=== PATIENT | male | born 1950 | race Caucasian/White ===

== ENCOUNTER 2019-02-14 17:00 | Emergency (ER) | payer OTHER ==
[2019-02-14] MEDS ORDERED: TETANUS & DIPHTHERIA TOX,ADULT 0.5 ML VIAL ONE (19:24)
--- NOTE | 2019-02-14 20:21 | ER ---
Nurse's Notes [facility] Name: Saleem Rodriguez Age: 68 yrs Sex: Male : 1950 Arrival Date: 02/14/2019 Time: 17:04 Bed 27 Private MD: Tho Elizondo V Diagnosis: Left Thumb Skin Avulsion Presentation: 02/14 17:23 Presenting complaint: Patient states: I was carrying a table saw when i lost control of sg the saw and slipped and dropped it, slicing my left thumb. Transition of care: patient was not received from another setting of care. Onset of symptoms was February 14, 2019. Risk Assessment: Do you want to hurt yourself or someone else? Patient reports no desire to harm self or others. Initial Sepsis Screen: Does the patient meet any 2 criteria? No. Patient's initial sepsis screen is negative. Does the patient have a suspected source of infection? No. Patient's initial sepsis screen is negative. Care prior to arrival: None. 17:23 Method Of Arrival: Ambulatory sg 17:23 Acuity: YOUSIF 4 sg Historical: - Allergies: 17:06 No Known Allergies; sg - PMHx: 17:06 Diabetes - NIDDM; High Cholesterol; Hypertension; Prostate Cancer; sg - PSHx: 17:06 left kidney removed; sg - Immunization history:: Adult Immunizations. - Social history:: Smoking status: Patient/guardian denies using tobacco. - Ebola Screening: : Patient negative for fever greater than or equal to 101.5 degrees Fahrenheit, and additional compatible Ebola Virus Disease symptoms Patient denies exposure to infectious person Patient denies travel to an Ebola-affected area in the 21 days before illness onset No symptoms or risks identified at this time. Screenin:41 Abuse screen: Denies threats or abuse. Denies injuries from another. Nutritional iw screening: No deficits noted. Tuberculosis screening: No symptoms or risk factors identified. Fall Risk Fall in past 12 months (25 points). Assessment: 17:41 General: Appears in no apparent distress. comfortable, Behavior is calm, cooperative. iw Pain: Complains of pain in dorsal aspect of distal phalanx of left thumb and left thumbnail. Neuro: Level of Consciousness is awake, alert, obeys commands, Oriented to person, place, time, situation, Moves all extremities. Full function. Cardiovascular: Patient's skin is warm and dry. Respiratory: Respiratory effort is even, unlabored. Derm: Skin is intact, is healthy with good turgor. Musculoskeletal: Range of motion: intact in all extremities. 17:42 Injury Description: Avulsion sustained to dorsal aspect of distal phalanx of left thumb iw is partial. 19:37 Reassessment: Patient appears in no apparent distress at this time. No changes from dm5 previously documented assessment. Vital Signs: 17:24 BP 155 / 71; Pulse 87; Resp 18; Temp 97.6; Pulse Ox 100% on R/A; sg 20:23 BP 155 / 74; Pulse 72; Resp 20; Temp 99.2(O); Pulse Ox 96% ; lt1 ED Course: 17:04 Patient arrived in ED. mr 17:04 Tho Elizondo MD is Private Physician. mr 17:05 Arm band placed on. sg 17:24 Triage completed. sg 17:30 Bandage applied. Pressure dressing applied. cleaned with NS and Chlorhexidine solution, sg pt tolerated well. 17:35 Corazon Gambino, RN is Primary Nurse. iw 17:42 Patient has correct armband on for positive identification. iw 18:20 Brian Mejia PA is PHCP. jmm 18:20 Jesus Bowden MD is Attending Physician. m 19:37 No provider procedures requiring assistance completed. dm5 19:38 Della Jiang, ALEXANDRA is Primary Nurse. dm5 19:41 Hand Left 3 View XRAY In Process Unspecified. EDMS 20:20 Shine Flanagan MD is Referral Physician. jmm 21:39 Patient did not have IV access during this emergency room visit. dm5 Administered Medications: 18:24 CANCELLED (no flu): Tamiflu 30 mg PO once jmm 19:35 Drug: Tetanus-Diphtheria Toxoid Adult 0.5 ml {Chip Machine Operator: [facility]. Exp: dm5 08/13/2020. Lot #: [id number]. } Route: IM; Site: left deltoid; 19:50 Follow up: Response: No adverse reaction dm5 Outcome: 20:20 Discharge ordered by MD. jmm 20:20 Discharged to home ambulatory. dm5 20:20 Condition: good 20:20 Discharge instructions given to patient, Instructed on discharge instructions, follow up and referral plans. Demonstrated understanding of instructions, follow-up care, wound care. 20:28 Patient left the ED. dm5 Signatures: Dispatcher [employer] Della Toussaint, RN ALEXANDRA dm5 Mathieu Britt RN RN sg Mickail, Joel, PA PA jmm Rivera, Mary mr Corazon Gambino RN RN iw Tran, [facility]
--- NOTE | 2019-02-14 20:21 | EDPHYS ---
Physician Documentation [facility] Name: Saleem Rodriguez Age: 68 yrs Sex: Male : 1950 Arrival Date: 02/14/2019 Time: 17:04 Bed 27 Private MD: Tho Elizondo V ED Physician Jesus Bowden HPI: 02/14 18:54 This 68 yrs old Male presents to ER via Ambulatory with complaints of Thumb jmm laceration. 18:54 The patient or guardian reports injury. Onset: The symptoms/episode began/occurred jmm acutely, just prior to arrival. Modifying factors: The symptoms are alleviated by nothing, the symptoms are aggravated by nothing. Associated signs and symptoms: Pertinent negatives: fever. This is a 68 year old male with a history of DM, HLP, HTN, that presents to the ED with complaints of bleeding to his left them after he fell while carrying a saw. Unable to stop bleeding at home. No UTD on tetanus immunization. Denies other injury. . Historical: - Allergies: 17:06 No Known Allergies; sg - PMHx: 17:06 Diabetes - NIDDM; High Cholesterol; Hypertension; Prostate Cancer; sg - PSHx: 17:06 left kidney removed; sg - Immunization history:: Adult Immunizations. - Social history:: Smoking status: Patient/guardian denies using tobacco. - Ebola Screening: : Patient negative for fever greater than or equal to 101.5 degrees Fahrenheit, and additional compatible Ebola Virus Disease symptoms Patient denies exposure to infectious person Patient denies travel to an Ebola-affected area in the 21 days before illness onset No symptoms or risks identified at this time. ROS: 18:54 Constitutional: Negative for fever, chills, and weight loss, Cardiovascular: Negative jmm for chest pain, palpitations, and edema, Respiratory: Negative for shortness of breath, cough, wheezing, and pleuritic chest pain. 18:54 MS/extremity: Positive for injury or acute deformity. 18:54 All other systems are negative. Exam: 18:54 Constitutional: This is a well developed, well nourished patient who is awake, alert, jmm and in no acute distress. Head/Face: atraumatic. Eyes: EOMI, no conjunctival erythema appreciated ENT: Moist Mucus Membranes Neck: Trachea midline, Supple Chest/axilla: Normal chest wall appearance and motion. Cardiovascular: Regular rate and rhythm. No edema appreciated Respiratory: Normal respirations, no respiratory distress appreciated Abdomen/GI: Non distended, soft Back: Normal ROM 18:54 Skin: depadding noted to the distal left thumb, no active bleeding appreciated. 18:54 Neuro: Orientation: is normal, Mentation: is normal, Memory: is normal. 18:54 Psych: Behavior/mood is pleasant, cooperative. Vital Signs: 17:24 BP 155 / 71; Pulse 87; Resp 18; Temp 97.6; Pulse Ox 100% on R/A; sg 20:23 BP 155 / 74; Pulse 72; Resp 20; Temp 99.2(O); Pulse Ox 96% ; lt1 MDM: 18:48 Patient medically screened. [facility] 20:19 Data reviewed: vital signs, nurses notes. Counseling: I had a detailed discussion with gael the patient and/or guardian regarding: the historical points, exam findings, and any diagnostic results supporting the discharge/admit diagnosis, radiology results, the need for outpatient follow up, to return to the emergency department if symptoms worsen or persist or if there are any questions or concerns that arise at home. ED course: Patient is alert and non toxic in appearance in the ED. Patient advised to follow up with hand for avulsion. patient is otherwise given strict return precautions. patient understood and agrees with the plan of care. . 02/14 18:25 Order name: Hand Left 3 View XRAY [facility] Administered Medications: 18:24 CANCELLED (no flu): Tamiflu 30 mg PO once [facility] 19:35 Drug: Tetanus-Diphtheria Toxoid Adult 0.5 ml {Concrete Saw Operator: [facility]. Exp: dm5 08/13/2020. Lot #: [id number]. } Route: IM; Site: left deltoid; 19:50 Follow up: Response: No adverse reaction dm5 Disposition: 02/15 08:54 Co-signature as Attending Physician, Jesus Bowden MD I agree with the assessment and kdr plan of care. Disposition: 02/14/19 20:20 Discharged to Home. Impression: Left Thumb Skin Avulsion. - Condition is Stable. - Discharge Instructions: Deep Skin Avulsion. - Prescriptions for Cephalexin 500 mg Oral Capsule - take 1 capsule by ORAL route every 6 hours for 10 days; 40 capsule. - Medication Reconciliation Form, Thank You Letter, Antibiotic Education, Prescription Opioid Use form. - Follow up: Shine Flanagan MD; When: 2 - 3 days; Reason: Recheck today's complaints, Continuance of care, Re-evaluation by your physician. Signatures: Dispatcher [employer] EDMS Della Jiang RN RN dm5 Mathieu Britt RN RN sg Jesus Bowden MD MD kdr Mickail, Joel, PA PA jmm Corrections: (The following items were deleted from the chart) 02/14 18:24 18:24 Tamiflu Suspension 30 mg PO once ordered. gael mayo 20:28 20:20 02/14/2019 20:20 Discharged to Home. Impression: Left Thumb Skin Avulsion. dm5 Condition is Stable. Forms are Medication Reconciliation Form, Thank You Letter, Antibiotic Education, Prescription Opioid Use. Follow up: Shine Flanagan; When: 2 - 3 days; Reason: Recheck today's complaints, Continuance of care, Re-evaluation by your physician. gael
--- NOTE | 2019-02-14 20:44 | RAD REPORT ---
EXAM DESCRIPTION: RAD - Hand Left 3 View - 02/14/2019 7:40 pm CLINICAL HISTORY: Left hand pain, trauma to the left thumb, laceration COMPARISON: None. FINDINGS: No fracture, dislocation or periosteal reaction noted. No foreign body in the soft tissues . IMPRESSION: Negative left hand examination.
[2019-02-14 23:26] VITALS: BP 155/74; TEMP 99.2; O2SAT 96
== END 2019-02-14 20:28 | disposition home or self-care (01) ==
LOC: ER 17:00
DX: S61.002A Unspecified open wound of left thumb without damage to nail, initial encounter (principal); I10 Essential (primary) hypertension; W31.2XXA Contact with powered woodworking and forming machines, initial encounter; Y93.89 Activity, other specified; Y92.9 Unspecified place or not applicable; Z23 Encounter for immunization; Z85.46 Personal history of malignant neoplasm of prostate
CPT/HCPCS: 90471; 90714; 99283